=== PATIENT | male | born 1980 | race Caucasian/White ===

== ENCOUNTER 2018-12-04 17:14 | Emergency (ER) | payer OTHER ==
[~2018-12-04] VITALS: Ht 175.3 cm; Wt 71.7 kg
[~2018-12-04 17:14] MED LIST: SERT100T PO
[2018-12-04 17:16] VITALS: BP 144/96
--- NOTE | 2018-12-04 17:16 | NUR ---
PT ARRIVED TO ED C/O ATYPICAL CHEST PAIN X 3-4MONTHS AND NEED ANTIBIOTICS FOR CELLULITIST. PT STATES HE HAS GENERALIZED PAIN BUT ALSO CHEST PAIN THAT COMES AND GOES OVER 3-4 MONTHS. PT ADMITS TO [facility]. ALSO PT STATES HE GOES TO A [facility] TO GET CLEANED. PT RATES PAIN 6/10 AND DESCRIBES IT DULL AND THROBBING. SKIN SHOWS INUDRATION PALAPATED AND POSSIBLE SCARRING FROM SKIN POPPING, NO REDNESS NO DISCOLORATION NOTED. HEART SOUND S1S2 PRESENT, REGULAR HEARTBEAT. VSS. PMH: DRUG USE NKA.
--- NOTE | 2018-12-04 17:30 | NUR ---
Patient ambulated to bed 3. RN evaluating patient at bedside.
--- NOTE | 2018-12-04 18:38 | NUR ---
LAB AT BEDSIDE
--- NOTE | 2018-12-04 18:51 | NUR ---
RADIOLOGY AT BEDSIDE
[2018-12-04 18:55] LABS: HEMATOCRIT 35.9 % (36-52); HEMOGLOBIN 11.9 g/dL (12.0-18.0); MEAN CORPUSCULAR HEMOGLOBIN 28 pg (27-31); MEAN CORPUSCULAR HGB CONC 33 g/dL (33-37); MEAN CORPUSCULAR VOLUME 84.6 fL (80-94); PLATELET COUNT (AUTO) 262 K/uL (140-450); RED BLOOD CELL COUNT(AUTO) 4.25 MIL/uL (4.20-6.10); RED CELL DISTRIBUTION WIDTH 13.1 % (11.6-13.7); WHITE BLOOD COUNT (AUTO) 5.8 K/uL (4.8-10.8)
--- NOTE | 2018-12-04 19:07 | NUR ---
PT IS STABLE, ON BEDSIDE CHAIR USING PHONE.
--- NOTE | 2018-12-04 19:12 | NUR ---
Ricardo tejeda in EDM - 12/04/18 at [address] [facility] Pt report given to FRANSISCO. Transfer of care at this time.
--- NOTE | 2018-12-04 19:15 | NUR ---
RECEIVED REPORT FROM TONEY GONZALES. TRANSFER OF CARE AT THIS TIME.
--- NOTE | 2018-12-04 19:15 | NUR ---
Pt report given to TONEY MOODY. Transfer of care at this time.
[2018-12-04 19:19] LABS: ALBUMIN 3.8 g/dL (3.4-5.0); ANION GAP 14.6 (8-16); CARBON DIOXIDE 25.7 mmol/L (21-32); CREATININE 0.7 mg/dL (0.7-1.3); POTASSIUM 3.3 mmol/L (3.5-5.1); TOTAL BILIRUBIN 0.2 mg/dL (0.0-1.0)
[2018-12-04 19:24] LABS: EOSINOPHILS % (MANUAL) 8 % (0-4); LYMPHOCYTES % (MANUAL) 26 % (20-46); MONOCYTES % (MANUAL) 4 % (5-12); PROMYELOCYTES % 1 % (0-0)
[2018-12-04 19:28] LABS: CREATINE KINASE MB 1.9 ng/mL (0-3.6)
[2018-12-04 19:31] LABS: CHOL/HDL RATIO 2.1 (1-4.5)
[2018-12-04 20:38] VITALS: BP 147/94
--- NOTE | 2018-12-04 20:38 | NUR ---
Note ileana in EDM - 12/05/18 at 0044 by [facility] d Patient discharged with v/s stable. Written and verbal after care instructions given and explained. Patient alert, oriented and verbalized understanding of instructions. Ambulatory with steady gait. All questions addressed prior to discharge. ID band removed. Patient advised to follow up with PMD. Rx of Keflex and Pepcid given. Patient educated on indication of medication including possible reaction and side effects. Opportunity to ask questions provided and answered.
== END 2018-12-04 20:38 | disposition home or self-care (01) ==
LOC: MED 17:14
DX: R07.9 Chest pain, unspecified (principal); L03.818 Cellulitis of other sites; K21.9 Gastro-esophageal reflux disease without esophagitis; F17.200 Nicotine dependence, unspecified, uncomplicated; Z79.899 Other long term (current) drug therapy
CPT/HCPCS: 36415; 71045; 80053; 80061; 82550; 82553; 83880; 84484; 85025; 85379; 93005; 99284; Q0092

== ENCOUNTER 2018-12-11 19:25 | Emergency (ER) | payer OTHER ==
[~2018-12-11] VITALS: Ht 175.3 cm; Wt 74.8 kg
[2018-12-11 19:39] VITALS: BP 134/89
--- NOTE | 2018-12-11 19:42 | NUR ---
PT AMBULATED TO LOBBY
--- NOTE | 2018-12-11 20:27 | NUR ---
PT AMBULATED TO ER BED 11
--- NOTE | 2018-12-11 20:50 | NUR ---
Dr. Rowell examining patient.
--- NOTE | 2018-12-11 20:54 | NUR ---
37 Y/O MALE PRESENTS TO ED, C/O BODYACHES 10/01 DUE TO WITHDRAWAL. PT STATES GOING TO [facility] BUT WAS UNABLE TO GO THE PAST 2 DAYS. STATES THIS IS THE FIRST TIME WITHDRAWING. C/O NAUSEA BUT NO VOMITING. LAST DOSE OF METH[facility]ONE WAS 2 DAYS AGO 90MG, PER PT. PT VSS. PT DENIES ANY CHEST PAIN. ERMD AWARE. WILL CONTINUE TO MONITOR.
[2018-12-11] MEDS ORDERED: METHADONE 10 MG TAB PO ONE (21:05)
[2018-12-11] MEDS ORDERED: METHADONE 10 MG TAB ONE (21:23)
[2018-12-11 22:10] VITALS: BP 138/71
--- NOTE | 2018-12-11 22:10 | NUR ---
PT DISCHARGED WITH PAPERWORK. NO RX. PROVIDED. EDUCATED PT REGARDING D/C DIAGNOSIS AND INSTRUCTIONS. PT VERBALIZED UNDERSTANDING OF TEACHING. TOLD PT TO FOLLOW UP WITH PCP AND WHEN TO RETURN TO ED. PT VSS. ALL QUESTIONS ANSWERED.
== END 2018-12-11 22:10 | disposition home or self-care (01) ==
LOC: MED 19:25
DX: F11.23 Opioid dependence with withdrawal (principal); K21.9 Gastro-esophageal reflux disease without esophagitis; Z79.899 Other long term (current) drug therapy
CPT/HCPCS: 99283

== ENCOUNTER 2023-06-13 08:19 | Emergency (ER) | payer OTHER ==
[~2023-06-13] VITALS: Ht 175.3 cm; Wt 71.7 kg
[2023-06-13 08:25] VITALS: BP 134/82; PULSE 71; RESP 18; TEMP 97.5; O2SAT 100
[2023-06-13] MEDS ORDERED: buprenorphine HCL 2 MG sublingual tab SL ONE (08:45)
[2023-06-13] MEDS ORDERED: CILOS LEFT EYE (09:06)
[2023-06-13] MEDS ORDERED: IBUP-1842 PO (09:06)
[2023-06-13] MEDS ORDERED: ACET-2619 PO (09:06)
[2023-06-13] MEDS: buprenorphine HCL 2 MG sublingual tab SL ONE (09:07)
[2023-06-13] MEDS: FLUORESCEIN OPTH STRIP 1 MG OP ONE (09:10)
[2023-06-13] MEDS: TETRACAINE HCL/PF 0.5% OPTH 4 ML BTL OP ONE (09:11)
[2023-06-13 09:40] VITALS: BP 134/82; PULSE 71; RESP 18; TEMP 97.5; O2SAT 100
== END 2023-06-13 09:40 | disposition home or self-care (01) ==
LOC: MED 08:19
DX: S05.02XA Injury of conjunctiva and corneal abrasion without foreign body, left eye, initial encounter (principal); K21.9 Gastro-esophageal reflux disease without esophagitis; Z79.899 Other long term (current) drug therapy; X58.XXXA Exposure to other specified factors, initial encounter; Y93.89 Activity, other specified; Y92.89 Other specified places as the place of occurrence of the external cause; Y99.8 Other external cause status
CPT/HCPCS: 99283